=== PATIENT | male | born 1980 | race Two or more races ===

== ENCOUNTER 2024-07-06 08:40 | Emergency (ER) | payer SELFPAY ==
--- NOTE | ~2024-07-06 | CT_ITS ---
EXAMINATION: CT brain wo con DATE: 07/06/2024 12:41 INDICATION: Head injury TECHNIQUE: Computed tomography (CT) of the head was performed without intravenous contrast. The mA wa s adjusted according to patient size. Iterative reconstruction technique was employed. Exam dose: 68 1.00 mGy-cm total exam DLP. COMPARISON: None FINDINGS: No intracranial mass lesion or hemorrhage or cerebrovascular accident, midline shift or mas s effect. Normal ventricular size. Normal muir-white matter differentiation. No subdural or epidural hematoma. No cephalohematoma is evident by CT examination. The orbits are unremarkable. There is mild patchy soft tissue thickening of the ethmoid air cells but the paranasal sinuses otherw ise are normally developed and aerated. The mastoid air cells are well-developed and aerated. No fracture or bone destruction of the cranial vault. IMPRESSION: No skull fracture or intracranial abnormality Reviewed, dictated and finalized at [facility]. Reviewed, dictated and finalized at [facility]. BASE DEVELOPMENT PROJECT MANAGER
--- NOTE | ~2024-07-06 | XR_ITS ---
XR lumbar spine 2-3V DATE: 07/06/2024 11:45 INDICATION: Fall. Back pain. TECHNIQUE: AP, lateral, coned lateral lumbosacral views COMPARISON: None FINDINGS: Mild thoracolumbar dextroscoliosis. The lumbar vertebrae are normally aligned. No fracture or bone destruction or spondylolisthesis. The included lower thoracic and lumbar pedicles are intact. There is moderately prominent loss of interspace height at L4-5 with degenerative spurring. The remai terrell lumbar level secondary spaces appear relatively preserved. The sacroiliac joints appear normal. Incidentally noted is a prominent amount of fecal material in the right colon. IMPRESSION: Moderate to moderately severe degenerative disc disease at L4-5 Mild thoracolumbar dextroscoliosis No fracture or bone destruction Reviewed, dictated and finalized at [facility]. EYOR INSTALLER
[2024-07-06 08:53] VITALS: BP 136/78; PULSE 79; RESP 20; TEMP 36.4; O2SAT 99
[2024-07-06] MEDS: SODIUM CHLORIDE 0.9% IV 1,000 ML 999 ML IV CONT (12:05)
[2024-07-06] MEDS: KETOROLAC 30 MG/ML VIAL (*BKC) IV PUSH (12:05)
[2024-07-06 12:09] VITALS: BP 138/87; PULSE 71; RESP 18; O2SAT 100
--- NOTE | 2024-07-06 13:42 | ED.FALL ---
HPI - Fall General Chief Complaint: Fall Stated Complaint: fall on ice Time Seen by Provider: 07/06/24 11:16 History of Present Illness HPI Narrative: Patient is a 44-year-old male who presents ER after a fall. He was walking inside with building when he slipped on some ice. He did strike his head but did not lose consciousness. No fevers or chills or sweats. He did land on his back is having low back pain more on the right side. No lower extremity numbness or weakness. Denies history of back issues. Related Data Allergies Allergy/AdvReac Type Severity Reaction Status Date / Time No Known Allergies Allergy Verified 07/06/24 08:54 Review of Systems Review of Systems: All systems reviewed & are unremarkable except as noted in HPI and below Constitutional: Constitutional: Reports no additional constitutional complaints Musculoskeletal: Musculoskeletal: Reports no additional musculoskeletal complaints Neurologic: Reports system reviewed and no additional complaints, except as documented PMFSH Past Medical History Medical History (Updated 07/06/24 @ 14:20 by Glen Falcon MD) Healthy adult male Surgical History Surgical History (Updated 07/06/24 @ 14:18 by Glen Falcon MD) No pertinent past surgical history Social History Social History (Updated 07/06/24 @ 14:19 by Glen Falcon MD) Social History: otr flatbed driver, lives in [facility]. Exam Narrative: GENERAL: Well-appearing, well-nourished, and in no acute distress. HEAD: Normocephalic, atraumatic. ENT: Mucous membranes moist. CHEST: Clear to auscultation. No respiratory distress. HEART: Regular rate and rhythm. Normal peripheral pulses. ACK: No midline tenderness of the T/L spine. TTP right paraspinal region at L4. No bruising/abrasion. EXTREMITIES: Normal range of motion. No edema. NEURO: Alert and oriented x3. PSYCH: Normal mood and affect. Course Course Emergency Course: Patient resting comfortably after Toradol. Informed of imaging results. Appropriate for discharge home. Vital Signs Vital signs: Vital Signs Temperature 97.5 F L 07/06/24 08:53 Pulse Rate 79 07/06/24 08:53 Respiratory Rate 20 07/06/24 08:53 Blood Pressure 136/78 07/06/24 08:53 Pulse Oximetry 99 07/06/24 08:53 Temperature 97.5 F L 07/06/24 08:53 Pulse Rate 71 07/06/24 12:09 Respiratory Rate 18 07/06/24 12:09 Blood Pressure 138/87 07/06/24 12:09 Pulse Oximetry 100 07/06/24 12:09 MDM - Fall Imaging Data Radiologist's impression: ITS Impressions Lumbar Spine X-Ray 07/06/24 11:46 IMPRESSION: Moderate to moderately severe degenerative disc disease at L4-5 Mild thoracolumbar dextroscoliosis No fracture or bone destruction Head CT 07/06/24 12:43 IMPRESSION: No skull fracture or intracranial abnormality Discharge Plan Discharge Clinical Impression: Low back pain Patient Disposition: Home, Self-Care Condition: Stable Instructions: Acute Low Back Pain (ED) Additional Instructions: Please return to the emergency department if you develop severe pain that is not controlled by pain medications or if you are unable to walk because of pain or weakness. Return to the emergency department immediately if you develop fevers, loss of bowel or bladder control (dribbling of urine or having accidents you wouldn't normally have), inability to urinate, numbness of your genital or anal area, or weakness/numbness of your legs or arms as these could all be signs of a serious medical emergency. Do not operate heavy machinery while taking a muscle relaxer. Patient Language: Yakut Prescriptions: New cyclobenzaprine 10 mg tablet 10 mg PO TID PRN (Reason: muscle spasm) Qty: 20 0RF naproxen 375 mg tablet 375 mg PO BID Qty: 14 0RF Follow-up/Referrals: PHYSICIAN,RN ENDOSCOPY [Primary Care Provider] - Pratik French MD [Physician] - 1 Week
[2024-07-06 14:45] VITALS: BP 130/72; PULSE 70; RESP 18; TEMP 36.6; O2SAT 100
== END 2024-07-06 14:46 | disposition home or self-care (01) ==
PROVIDERS: Emergency Provider Emergency Medicine
DX: S39.92XA Unspecified injury of lower back, initial encounter (principal); S09.90XA Unspecified injury of head, initial encounter; M51.369 Other intervertebral disc degeneration, lumbar region without mention of lumbar back pain or lower extremity pain; W00.0XXA Fall on same level due to ice and snow, initial encounter
CPT/HCPCS: 70450; 72100; 96361; 96374; 99284; J1885; J7030